=== PATIENT | female | born 1950 | race African-American/Black ===

== ENCOUNTER 2018-12-17 10:35 | Inpatient (IN) | payer OTHER ==
[~2018-12-17] VITALS: Ht 154.9 cm; Wt 107.1 kg
[~2018-12-17 10:35] MED LIST: ACTOS 30 MG TAB30 MG PO; AMARYL2 MG PO; AMLODIPINE BESY10 MG PO; ASPIRIN81 M2 PO; DIOVAN320 MG PO; GLUCOPHAGE500 MG PO; HYDROCHLOROTH12.5 MG PO; KEPPRA 500 MG500 M1 PO; KEPPRA 500 MG500 M2 PO; LIPITOR20 MG PO; NORCO 5-325 TA1 EACH PO; NOVOLIN 70100 UNIT/5; NOVOLIN 70100 UNIT/5 SQ; NOVOLOG100 UNIT/1; PLAVIX 75 MG TA75 MG PO; TOPROL XL25 MG PO
[2018-12-17 10:36] VITALS: BP 147/66
--- NOTE | 2018-12-17 11:09 | NUR ---
IV TEAM PAGED AND LAB FOR LINE PLACEMENT AND BLOOD
[2018-12-17 11:22] LABS: BE(vivo) -2.4 mmol/L (-2 to +3); HCO3 21.9 mmol/L (22.0-26.0); PO2 61.5 mmHg (80.0-100.0); pH 7.402 (7.360-7.450); sO2 91.8 % (92.0-98.0)
[2018-12-17 11:45] LABS: HEMOGLOBIN 9.8 gm/dL (12.0-15.0)
[2018-12-17 11:50] LABS: ABSOLUTE NEUTROPHILS 4.7 thou/uL (1.4-8.2); WBC 6.7 thou/uL (4.0-11.0)
[2018-12-17 11:52] LABS: BASOPHILS 0.6 % (0.0-2.0); EOSINOPHILS 2.6 % (0.0-3.0); HEMATOCRIT 29.7 % (37.0-47.0); LYMPHOCYTES 17.2 % (24.0-44.0); MCH 28.4 pg (26.0-34.0); MCHC 33.1 g/dL (28.0-37.0); MONOCYTES 9.6 % (1.0-8.0); PLATELET COUNT 281 thou/uL (150-400); RBC 3.45 mil/uL (4.20-5.00); RDW 14.6 % (10.5-14.5)
[2018-12-17 12:18] LABS: CREATININE 1.3 mg/dL (0.6-1.0); POTASSIUM 4.7 mmol/L (3.5-5.1)
[2018-12-17 12:23] LABS: ALBUMIN 2.5 g/dL (3.4-5.0); TOTAL BILIRUBIN 0.5 mg/dL (<0.1-1.0); TROPONIN-I 0.17 ng/mL (<0.06)
--- NOTE | 2018-12-17 16:10 | 2DMMODE ---
[facility] [place] [place] [address] 2 D/M-MODE ECHOCARDIOGRAM Name: BRADEN COVINGTON Piedad Room #: 170-12 [facility] IN [facility]#: [id number] ������������� Admission: 12/17/18 ������������� Attend Phys: Jason Fraire, Discharge: ��� ������������� ��� Date of : 46 Date of Service: 12/17/18 1610 �� Report #: [id number] �������� ��������������������������������������������[id number] THIS REPORT FOR: //name// APPROVED REPORT Study performed: 12/17/2018 15:17:11 EXAM: Comprehensive 2D, Doppler, and color-flow Echocardiogram Patient Location: ER Status: routine BSA: 2.01 HR: 56 bpm BP: 158/65 mmHg Rhythm: NSR Other Information Study Quality: Adequate Technically limited study due to obesity and flat on back. Indications Short of air. Hx: ME, CABG, CVA, HTN, HLP, DM. 2D Dimensions RVDd: 39.53 mm IVSd: 12.12 (7-11mm) LVOT Diam: 19.15 (18-24mm) LVDd: 47.71 mm PWd: 12.38 (7-11mm) LVDs: 31.45 (25-40mm) Aortic Root: 31.50 mm Volumes Left Atrial Volume (Systole) Single Plane 4CH: 71.99 mL Single Plane 2CH: 61.10 mL LA ESV Index: 35.00 mL/m2 Aortic Valve AoV Peak Ludin.: 1.41 m/s AO Peak Gr.: 7.95 mmHg LVOT Max P.96 mmHg LVOT Max V: 0.99 m/s DILMA Vmax: 2.03 cm2 Mitral Valve E/A Ratio: 2.[address] [facility] [place] [address] 2 D/M-MODE ECHOCARDIOGRAM Name: COVINGTONBRADEN L Room #: [address] [place] [address] [place] [facility]#: [id number] ������������� Admission: 12/17/18 ������������� Attend Phys: Jason Fraire, Discharge: ��� ������������� ��� Date of : 46 Date of Service: 12/17/18 1610 �� Report #: [id number] �������� ��������������������������������������������[id number] MV Decel. Time: 200.65 ms MV E Max Ludin.: 1.20 m/s MV A Ludin.: 0.56 m/s MV PHT: 58.19 ms IVRT: 59.98 ms Pulmonary Valve PV Peak Ludin.: 0.78 m/s PV Peak Gr.: 2.43 mmHg Pulmonary Vein P Vein S: 0.74 m/s P Vein D: 0.87 m/s P Vein S/D Ratio: 0.85 Tricuspid Valve TR Peak Ludin.: 2.90 m/s RAP Estimate: 10.00 mmHg TR Peak Gr.: 33.74 mmHg PA Pressure: 44.00 mmHg Left Ventricle The left ventricle is normal size. There is normal LV segmental wall motion. Mild concentric left ventricular hypertrophy. Left ventricular systolic function is normal. LVEF is 60-65%. Moderate diastolic dysfunction is present (pseudonormal filling). Right Ventricle The right ventricle is normal size. The right ventricular systolic function is normal. Atria Left atrium is mildly dilated. The right atrium size is normal. Aortic Valve The Aortic valve is sclerotic. No aortic regurgitation is present. There is no aortic valvular stenosis. Mitral Valve The mitral valve is normal in structure. Mild mitral annular calcification. Trace to mild mitral regurgitation. No evidence of mitral valve stenosis. Tricuspid Valve The tricuspid valve is normal in structure. Mild tricuspid regurgitation. Estimated PAP is 40-45mmHg. [facility] [address] [place] [address] 2 D/M-MODE ECHOCARDIOGRAM Name: BRADEN COVINGTON Room #: 170-12 [facility] IN [facility].#: [id number] ������������� Admission: 12/17/18 ������������� Attend Phys: Jason Fraire, Discharge: ��� ������������� ��� Date of : 46 Date of Service: 12/17/18 1610 �� Report #: [id number] �������� ��������������������������������������������[id number] Pulmonic Valve Pulmonic valve is not well visualized. Great Vessels The aortic root is normal in size. Ascending aorta is not well visualized. IVC is dilated and collapses >50% with inspiration. Pericardium There is no pericardial effusion. <Conclusion> The left ventricle is normal size. Mild concentric left ventricular hypertrophy. Left ventricular systolic function is normal. Moderate diastolic dysfunction is present (pseudonormal filling). The right ventricle is normal size. Left atrium is mildly dilated. The Aortic valve is sclerotic. The mitral valve is normal in structure. Mild mitral annular calcification. Trace to mild mitral regurgitation. Mild tricuspid regurgitation. Estimated PAP is 40-45mmHg. ��������������������������������������������� <ELECTRONICALLY SIGNED> ���������������������������������������� By: Alex Tejeda MD ��������������������������������������������� 12/17/18 1610 [id number] Alex Tejeda MD /INF
[2018-12-17 16:47] VITALS: BP 154/66
[2018-12-17 16:50] VITALS: BP 164/59
[2018-12-17 16:50] LABS: URINE BILIRUBIN NEGATIVE (Negative); URINE BLOOD 3+ (Negative); URINE CLARITY SL CLOUDY; URINE COLOR YELLOW; URINE GLUCOSE-RANDOM* NEGATIVE (Negative); URINE KETONES NEGATIVE (Negative); URINE LEUKOCYTES-REFLEX TRACE (Negative); URINE NITRITE-REFLEX NEGATIVE (Negative); URINE PROTEIN (DIPSTICK) 3+ (Negative); URINE SPECIFIC GRAVITY 1.025 (1.005-1.035); URINE UROBILINOGEN 0.2 E.U./dl (0.2-1.0)
[2018-12-17 17:02] LABS: SQUAMOUS 4-10 Moderate /LPF (0-3); URINE WBC-REFLEX 6-15 Few /HPF (0-5)
[2018-12-17 17:03] LABS: CASTS None Seen /LPF (None Seen); CRYSTALS None Seen /LPF (None Seen); URINE RBC 3-10 Few /HPF (0-2)
--- NOTE | 2018-12-17 19:56 | NUR ---
ARRIVED ON CCU. AAOX4 VERY PLEASANT AND COOPERATIVE. DENIES PAIN. O2 AT 2L. NO COUGH. GOOD APPETITE FOR DINNER. VOIDS PER COMMODE. IV LEFT AC.
[2018-12-17 20:08] VITALS: BP 183/65
[2018-12-18 00:27] VITALS: BP 173/65
--- NOTE | 2018-12-18 01:49 | NUR ---
ASSESSMENTS CHARTED. PATIENT DIURESING. UP TO BEDSIDE COMMODE. DYSPNEA WITH ACTIVITY. PLAN OF CARE IS TO CONTINUE DIURESING PATIENT, REQUEST FOR PATIENT RECORDS FROM [facility]. PATIENT RESTARTED ON HER HOME DOSE OF INSULIN.
[2018-12-18 04:44] VITALS: BP 165/53
[2018-12-18 04:54] LABS: ABSOLUTE NEUTROPHILS 3.7 thou/uL (1.4-8.2); BASOPHILS 0.8 % (0.0-2.0); HEMATOCRIT 28.1 % (37.0-47.0); HEMOGLOBIN 9.4 gm/dL (12.0-15.0); LYMPHOCYTES 19.7 % (24.0-44.0); MCHC 33.4 g/dL (28.0-37.0); MCV 86.8 fL (80.0-100.0); MONOCYTES 10.7 % (1.0-8.0); PLATELET COUNT 266 thou/uL (150-400); POLYS 63.8 % (36.0-66.0); RBC 3.24 mil/uL (4.20-5.00); RDW 14.5 % (10.5-14.5); WBC 5.7 thou/uL (4.0-11.0)
[2018-12-18 05:04] LABS: ANION GAP 7 mmol/L (7-16); BUN 36 mg/dL (7-18); CALCIUM 8.4 mg/dL (8.5-10.1); CHLORIDE 107 mmol/L (98-107); CHOLESTEROL 108 mg/dL (<200); CO2 28 mmol/L (21-32); CREATININE 1.8 mg/dL (0.6-1.0); GLUCOSE 193 mg/dL (74-106); HDL CHOLESTEROL 45 mg/dL (>40); LDL CHOLESTEROL 46 mg/dL (<100); MAGNESIUM 1.7 mg/dL (1.8-2.4); POTASSIUM 4.7 mmol/L (3.5-5.1); SODIUM 142 mmol/L (136-145); TC:HDL 2.4 Ratio (Not establshd); TRIGLYCERIDE 85 mg/dL (<150); TROPONIN-I 0.11 ng/mL (<0.06); VLDL 17 mg/dL (<40)
[2018-12-18 05:49] LABS: SERUM ASSESSMENT Clear
--- NOTE | 2018-12-18 09:31 | EKG ---
[address] [address] ELECTROCARDIOGRAM REPORT Name: BRADEN COVINGTON Room #: 210-P ADM IN M.R.#: [id number] ������������������ Admission: 12/17/18 ������������������ Attend Phys: Jason Fraire MD Discharge: ������������������ Date of : 46 Report #: [id number] ����������������������������������������������������������������� [id number] THIS REPORT FOR: //name// [facility] ED Test Date: 2018-12-17 Test Time: 10:54:38 Pat Name: BRADEN COVINGTON Department: Room: 210 Gender: F Concrete Technician: KAREEM : 1950 Requested By: Navin Aden Order Number: [id number] MD: Alex Tejeda Measurements Intervals [place] Rate: 49 P: 44 GA: 152 QRS: 25 QRSD: 90 T: 91 QT: 436 QTc: 394 Interpretive Statements Sinus bradycardia Baseline wander in lead(s) I,III Compared to ECG 09/14/2013 21:22:08 Sinus rhythm no longer present Electronically Signed On 12-18-2018 9:31:03 CDT by Alex Tejeda [email or web address] ��������������������������������������������� <ELECTRONICALLY SIGNED> ���������������������������������������� By: Alex Tejeda MD ��������������������������������������������� 12/18/18 0931 1054 [id number] Alex Tejeda MD /DERRELL
--- NOTE | 2018-12-18 09:38 | EKG ---
[address] [address] ELECTROCARDIOGRAM REPORT Name: JASON COVINGTONJOSE Herbert Room #: 210-P ADM IN M.R.#: [id number] ������������������ Admission: 12/17/18 ������������������ Attend Phys: Jason Fraire MD Discharge: ������������������ Date of : 46 Report #: [id number] ����������������������������������������������������������������� [id number] THIS REPORT FOR: //name// [facility] Test Date: 2018-12-18 Test Time: 07:16:22 Pat Name: BRADEN COVINGTON Department: Room: 210 P Gender: F Outside Solar Sales Consultant: LILLIAN : 1950 Requested By: Keke Faustin Order Number: [id number] MD: Alex Tejeda Measurements Intervals [place] Rate: 64 P: 42 MS: 144 QRS: 27 QRSD: 85 T: 98 QT: 413 QTc: 426 Interpretive Statements Sinus rhythm Nonspecific T abnormalities, lateral leads Compared to ECG 09/14/2013 21:22:08 T-wave abnormality now present Myocardial infarct finding no longer present Electronically Signed On 12-18-2018 9:38:21 CDT by Alex Tejeda [email or web address] ��������������������������������������������� <ELECTRONICALLY SIGNED> ���������������������������������������� By: Alex Tejeda MD ��������������������������������������������� 12/18/18 0938 5 5 Alex Tejeda MD /DERRELL
[2018-12-18 16:06] LABS: GLYCOHEMOGLOBIN (HGB A1C) 8.5 % (4.8-5.6)
--- NOTE | 2018-12-18 17:09 | NUR ---
MET WITH PATIENT WHO ADMITS WITH PNA. PATIENT LIVES AT HOME WITH DTR AND GRANDSON ALL NEEDS ON ONE LEVEL. HER DTR LEAVES FOR WORK AND GRANDSON COMES HOME FROM WORK SHE IS ALONE DURING DAY APPROX 2 HOURS. SHE DOES NOT USE ANY ASSISTIVE DEVICE AT HOME AND NO HOME OXYGEN. THERAPY ABIGAIL NOTED PT DC PATIENT. PLAN HOME INDEPENDENTLY AT [place].
[2018-12-18 20:14] VITALS: BP 184/65
[2018-12-19] VITALS (7 sets, daily range): BP systolic 168–185; BP diastolic 58–77
--- NOTE | 2018-12-19 09:59 | NUR ---
Assess due to high BMI 45.2=extreme obesity. Admitted with acute respiratory failure, CHF. Hx cva, dm, htn. Attempted to visit x 2, pt not in room. Chart reviewed-BG 101-107, A1C 8.5 high. Requires diuresis/lasix. Currently on carb controlled diet order but needs low Na added. Low nutrition risk. Available for nutrition education if pt desires.
[2018-12-19 17:19] LABS: CALCIUM 8.6 mg/dL (8.5-10.1); CREATININE 1.6 mg/dL (0.6-1.0); POTASSIUM 4.7 mmol/L (3.5-5.1)
--- NOTE | 2018-12-19 17:48 | NUR ---
ASSESSMENT DOCUMENTED. PT HAD CARDIAC STRESS TEST THIS AM. HAD HIGH BP. DR DUNLAP AND DR BOJORQUEZ NOTIFIED. ORDERS RECEIVED. FALL PRECAUTION IN PLACE. WILL CONTINUE TO MONITOR.
[2018-12-20 05:07] VITALS: BP 177/58
[2018-12-20 05:32] LABS: CALCIUM 8.8 mg/dL (8.5-10.1); CREATININE 1.5 mg/dL (0.6-1.0); POTASSIUM 4.7 mmol/L (3.5-5.1)
--- NOTE | 2018-12-20 05:45 | NUR ---
ASSUME CARE 1900. PT/VITALS STABLE. SOME NON CARDIAC CHEST PAIN NOTED. PT DENIES PAIN MEDICATION. TOLERATES ACTIVITY WELL. ASSESSMENT CHARTED. PROGRESSING WELL WITH POC. PLAN IS TO CONTINUE TO DIURESE PATIENT AND MONITOR RESPIRATORY FUNCTION. ALSO MONITOR BP. WILL CONTINUE TO FOLLOW WITH POC
[2018-12-20 06:09] LABS: % SATURATION 18 % (20-39); IRON 42 ug/dL (50-170); TIBC 240 ug/dL (250-450)
[2018-12-20 06:10] LABS: FOLIC ACID 7.8 ng/mL (8.6-58.9)
[2018-12-20 07:15] LABS: ABSOLUTE RETIC COUNT 0.0587 10^6/uL; OBSERVED RETIC COUNT 1.73 % (0.6-2.6)
[2018-12-20 07:59] VITALS: BP 176/60
[2018-12-20 10:43] VITALS: BP 179/57
--- NOTE | 2018-12-20 14:27 | NUR ---
Pt now off o2. Therapy has cleared her for dc to home once medically cleared. Pt having bp issues this am. No cm interventions indicated. Dc plan is home with family and outpt followup.
[2018-12-20 15:49] VITALS: BP 183/56
[2018-12-20] MEDS ORDERED: COZAAR100 MG PO (16:03)
[2018-12-20] MEDS ORDERED: VITAMIN B122500 MC1 PO (16:03)
[2018-12-20] MEDS ORDERED: IRON325 PO (16:03)
[2018-12-20] MEDS ORDERED: COREG6.25 MG PO (16:03)
[2018-12-20] MEDS ORDERED: FOLIC ACID0.4 MG PO (16:03)
[2018-12-20] MEDS ORDERED: ASA81BEC PO (16:05)
[2018-12-20] MEDS ORDERED: LASIX 40 MG TAB40 M2 PO (16:07)
[2018-12-20 16:21] VITALS: BP 183/56
[2018-12-20 16:29] VITALS: BP 154/77
--- NOTE | 2018-12-20 18:30 | NUR ---
ASSESSMENT DOCUMENTED. PT ALERT AND ORIENTED. HAD HIGH BP THIS AM. MD AND HAIR COLORIST AWARE. ORDERS GIVEN TO DISCHARGE PT TO HOME. DISCHARGE INSTRUCTIONS GIVEN TO PT. PT VERBERLIZE UNDERSTANDING.
== END 2018-12-20 18:32 | disposition home or self-care (01) | DRG 291 ==
LOC: ER 10:35 → EROBS 14:50 → 2N 14:50
PROVIDERS: Internal Medicine Cardiovascular Disease; Nurse Practitioner; Nurse Practitioner Family; Physician Assistant; ADMIT Internal Medicine
DX: I13.0 Hypertensive heart and chronic kidney disease with heart failure and stage 1 through stage 4 chronic kidney disease, or unspecified chronic kidney disease (principal); I50.31 Acute diastolic (congestive) heart failure; J96.01 Acute respiratory failure with hypoxia; J18.9 Pneumonia, unspecified organism; N17.9 Acute kidney failure, unspecified; E78.5 Hyperlipidemia, unspecified; I25.10 Atherosclerotic heart disease of native coronary artery without angina pectoris; E11.22 Type 2 diabetes mellitus with diabetic chronic kidney disease; N18.9 Chronic kidney disease, unspecified; Z60.2 Problems related to living alone; D64.9 Anemia, unspecified; R00.1 Bradycardia, unspecified; E87.70 Fluid overload, unspecified; Z79.82 Long term (current) use of aspirin; Z79.899 Other long term (current) drug therapy; I25.2 Old myocardial infarction; Z86.73 Personal history of transient ischemic attack (TIA), and cerebral infarction without residual deficits; Z79.4 Long term (current) use of insulin; Z95.1 Presence of aortocoronary bypass graft; Z90.49 Acquired absence of other specified parts of digestive tract; Z90.710 Acquired absence of both cervix and uterus; Z82.49 Family history of ischemic heart disease and other diseases of the circulatory system; Z83.6 Family history of other diseases of the respiratory system
CPT/HCPCS: 10081